=== PATIENT | male | born 1955 | race Caucasian/White ===

== ENCOUNTER 2020-11-15 15:41 | Emergency (ER) | payer BC ==
--- NOTE | 2020-11-15 17:36 | EDM.PDOC ---
ED HPI GENERAL MEDICAL PROBLEM - General Chief Complaint: Neuro Symptoms/Deficits Stated Complaint: POSSIBLE STROKE Time Seen by Provider: 11/15/20 16:50 Source of Information: Reports: Patient, Family History Limitations: Reports: Altered Mental Status, Physical Impairment - History of Present Illness INITIAL COMMENTS - FREE TEXT/NARRATIVE: 65-year-old male, a patient who does have early onset dementia and is already on Aricept is up in the area fishing and golfing with friends and family. They played some cards and had some drinks last night, he did not have more alcohol than usual, and went to bed in his normal state. There was some commotion overnight where they heard some bumping and noises around 4 to 5AM and this morning they saw some furniture moved and tipped and some mess in the bathroom that apparently was made by the patient. They tried to get him up for breakfast and he did not feel well, was weaker than usual and unsteady and seemed to have some dysarthria. They laid him back down for a nap while they went fishing and when they returned at 1:00 he had not improved so they discussed his condition with his and she recommended he be checked out. At this time he still has some dysarthria but really no aphasia, his words are coming out correctly just somewhat slurred like he is "drunk". Still having some trouble walking as he is very unsteady, but no focal weakness such as arm or leg weakness. They just want him checked out to make sure nothing needs to be done urgently. Symptom onset is probably over 12 hours ago. Onset: Unknown/Unsure (Patient woke up with symptoms) Duration: Hour(s): (Probably 12 hours) Location: Reports: Generalized Associated Symptoms: Reports: Confusion (Mild confusion which is chronic, somewhat increased over baseline), Weakness, Other (Mild dysarthria). Denies: Cough, Headaches, Malaise, Nausea/Vomiting, Shortness of Breath - Related Data Allergies Allergy/AdvReac Type Severity Reaction Status Date / Time No Known Allergies Allergy Verified 11/15/20 16:25 Home Meds: Home Meds Donepezil HCl [Aricept] 10 mg PO BEDTIME 11/15/20 [History] Losartan [Cozaar] 50 mg PO DAILY 11/15/20 [History] Past Medical History Cardiovascular History: Reports: Stents, Other (See Below) Other Cardiovascular History: marfan syndrome- aortic enlargement, valve involvement Neurological History: Reports: Other (See Below) Other Neuro History: minor cognitive impairment that is followed q6mos by [facility], has been stable - Infectious Disease History Infectious Disease History: Reports: C-Difficile, Measles - Past Surgical History Musculoskeletal Surgical History: Reports: Other (See Below) Other Musculoskeletal Surgeries/Procedures:: left foot surgery Social & Family History - Tobacco Use Tobacco Use Status *Q: Never Tobacco User - Recreational Drug Use Recreational Drug Use: No ED ROS GENERAL - Review of Systems Review Of Systems: See Below Constitutional: Denies: Fever, Chills, Malaise HEENT: Denies: Vision Change (Denies double vision or blurred vision) Respiratory: Denies: Shortness of Breath Cardiovascular: Denies: Chest Pain GI/Abdominal: Denies: Diarrhea, Nausea, Vomiting Musculoskeletal: Reports: Other Skin: Reports: No Symptoms ED EXAM, GENERAL - Physical Exam Exam: See Below Exam Limited By: No Limitations General Appearance: Alert, No Apparent Distress Eye Exam: Bilateral Eye: EOMI (Tracks normally), PERRL Head: Atraumatic Neck: Normal Inspection, Supple, Non-Tender Respiratory/Chest: Lungs Clear Cardiovascular: Regular Rate, Rhythm. No: Tachycardia GI/Abdominal: Soft, Non-Tender Extremities: Normal Inspection, Other (Grasp strength is equal, he can hold his legs up against gravity equally. Speech is dysarthric) Neurological: Alert, Disoriented (Disoriented to time which is not real unusual for him). No: Oriented Psychiatric: Normal Affect, Normal Mood Skin Exam: Warm, Dry Course - Vital Signs Last Recorded V/S: Last Vital Signs Temp 97.6 F 11/15/20 16:24 Pulse 75 11/15/20 18:13 Resp 16 11/15/20 16:24 BP 121/78 11/15/20 18:13 Pulse Ox 95 11/15/20 18:13 - Orders/Labs/Meds Labs: Laboratory Tests 11/15/20 11/15/20 Range/Units 16:45 17:22 WBC 5.0 (4.5-11.0) K/uL RBC 4.22 L (4.30-5.90) M/uL Hgb 13.7 (12.0-15.0) g/dL Hct 40.8 (40.0-54.0) % MCV 97 (80-98) fL MCH 33 H (27-31) pg MCHC 34 (32-36) % Plt Count 200 (150-400) K/uL Neut % (Auto) 51.8 (36-66) % Lymph % (Auto) 36.9 (24-44) % [place] % (Auto) 9.5 H (2-6) % Eos % (Auto) 1.2 L (2-4) % Baso % (Auto) 0.6 (0-1) % Sodium 145 (140-148) mmol/L Potassium 3.7 (3.6-5.2) mmol/L Chloride 109 H (100-108) mmol/L Carbon Dioxide 29 (21-32) mmol/L Anion Gap 10.7 (5.0-14.0) mmol/L BUN 20 H (7-18) mg/dL Creatinine 0.8 (0.8-1.3) mg/dL Est Cr Clr Drug Dosing 93.96 mL/min Estimated GFR (MDRD) > 60 (>60) Glucose 104 (74-106) mg/dL Calcium 8.4 L (8.5-10.1) mg/dL Total Bilirubin 0.2 (0.2-1.0) mg/dL AST 21 (15-37) U/L ALT 22 (12-78) U/L Alkaline Phosphatase 51 (46-116) U/L Total Protein 6.3 L (6.4-8.2) g/dL Albumin 3.6 (3.4-5.0) g/dL Globulin 2.7 (2.3-3.5) g/dL Albumin/Globulin Ratio 1.3 (1.2-2.2) Meds: Medications Discontinued Medications Generic Name Dose Route Start Last Admin Trade Name Freq PRN Reason Stop Dose Admin Aspirin 325 mg 11/15/20 18:13 11/15/20 18:21 Aspirin 325 Mg Tab.Ec PO 11/15/20 18:14 325 mg ONETIME ONE Administration - Re-Assessments/Exams Free Text/Narrative Re-Assessment/Exam: 11/15/20 17:38 CBC CMP were obtained as well as a head CT without contrast. 11/15/20 17:57 IMPRESSION: Unremarkable noncontrast head CT. Labs were also reassuring. Because symptoms started as much is 14 to 15 hours ago, his head CT is normal and he is stable, I do not think further evaluation or hospitalization is necessary at this time. He was given a copy of his CT and all labs, and should recheck when home and get an MRI in the next several days. He was also given a full dose aspirin and will continue a daily aspirin until rechecked. Departure - Departure Time of Disposition: 18:30 Disposition: Home, Self-Care 01 Clinical Impression: Dysarthria, Loss of balance - Discharge Information Instructions: Confusion, Dizziness, [id number] Referrals: PCP,None [Primary Care Provider] - Forms: ED Department Discharge Care Plan Goals: Recheck in 2 to 3 days if not completely back to baseline, an MRI or further evaluation by neurology may be necessary. Take 1 full dose aspirin daily until your recheck. Sepsis Event Note (ED) - Evaluation Sepsis Screening Result: No Definite Risk
--- NOTE | 2020-11-15 17:46 | CRLCT ---
For Patients: As a result of the Century Cures Act, medical imaging exams and procedure reports are released immediately into your electronic medical record. You may view this report before your referring provider. If you have questions, please contact your health care provider. INDICATION: Dysarthria and abnormal balance. TECHNIQUE: CT Head without contrast. COMPARISON: None. FINDINGS: CSF spaces: Within normal limits for age. Brain parenchyma: The kessler-white differentiation is normal. No sign of mass, hemorrhage, or midline shift. Skull base and calvarium: The visualized paranasal sinuses and mastoid air cells are clear. The visualized orbits are grossly unremarkable. No skull fractures. . IMPRESSION: Unremarkable noncontrast head CT. Please note that all CT scans at this facility use dose modulation, iterative reconstruction, and/or weight-based dosing when appropriate to reduce radiation dose to as low as reasonably achievable. Dictated by Obi Simpson MD @ 11/15/2020 5:45:06 PM (Electronically Signed)
[2020-11-15] MEDS ORDERED: Aspirin 325 MG Tab.EC PO ONE (18:13)
== END 2020-11-15 18:31 | disposition home or self-care (01) ==
LOC: JP.ED 15:41
DX: R47.1 Dysarthria and anarthria (principal); Z79.899 Other long term (current) drug therapy
CPT/HCPCS: 36415; 70450; 80053; 85025; 99285; A9270